=== PATIENT | female | born 1970 | race Caucasian/White ===

== ENCOUNTER → 2016-05-26 | Outpatient (CLI) | payer MEDICARE, MEDICAID ==
[~2016-05-26] MED LIST: 'zithromax250 MG PO; AMBIEN10 MG PO; AMOXICILLIN500 M2 PO; ANAPROX DS550 MG PO; ANTIVERT/2525 MG PO; ANTIVERT25 MG PO; ASMANEX TW110 MCG/AC INH; AUGMENTIN 875 M1 TA1 PO; AUGMENTIN 875 M1 TAB PO; AUGMENTIN 875875 MG PO; AVELOX400 MG PO; B12,B-12,B 12500 MC1 PO; BACLOFEN20 MG PO; BACTROBAN OINT22 GM PO; CALCIUM1 CAP PO; CEFZIL500 MG PO; CEPHALEXIN500 M1 PO; CIPRO250 MG PO; CIPRO500 MG PO; CIPRODEX 0.3%-7.5 ML OT; CIPROFLOXACIN500 MG PO; CLARITIN10 MG PO; CLINDAMYCIN HC300 MG PO; CLINDAMYCIN150 MG PO; COLACE100 MG PO; DARVOCET N 1001 TAB PO; DIFLUCAN100 MG PO; DIFLUCAN150 MG PO; DIFLUCAN200 MG PO; DURICEF500 MG PO; FLAGYL500 MG PO; FLOMAX0.4 MG PO; FLONASE0.05 MG/AC NS; FLUCONAZOLE100 MG PO; FLUMADINE100 MG PO; FLUONAZOLE200 M1 PO; GLUCOSAMINE500 MG PO; HYDROCODONE BIT1 T11 PO; KEFLEX500 MG PO; LAMICTAL100 MG PO; LEVAQUIN250 MG PO; LEVAQUIN750 M1 PO; LEVAQUIN750 MG PO; LEVOFLOXACIN500 MG PO; LITHIUM CARBON300 M2 PO; MACROBID100 M1 PO; MAGNESIUM500 MG PO; MEDROL DOSEPAK4 MG PO; MIRALAX POWDER17 G1 PO; MOTRIN800 MG PO; MUCINEX DM 30/61 TAB PO; Motrin,Rufen800 MG PO; NAPROSYN500 MG PO; NASONEX0.05 MG/AC NAS; NASONEX0.05 MG/AC NS; NORCO 5-325 TA1 EACH PO; OMNICEF300 MG PO; PEN-V500 MG PO; PEN-VK500 MG PO; PERCOCET 325 MG1 TA2 PO; PREDNICOT10 MG PO; PREDNICOT20 MG PO; PREDNISONE10 MG PO; PREDNISONE20 MG PO; PREVACID SOLUTA30 MG PO; PROBIOTIC FORMU1 CAP PO; PROTONIX40 MG PO; PYRIDIUM200 MG PO; QVAR0.08 MG/AC IH; REBIF22 MCG/0.5 SC; ROBITUSSIN AC 110 ML PO; ROBITUSSIN DM 105 ML PO; ROBITUSSIN5 ML PO; SINGULAIR10 MG PO; SYNTHROID,LEV125 MCG PO; SYNTHROID0.075 MG PO; SYNTHROID0.1 MG PO; TERAZOL0.4% VG; TESSALON PERLE100 M1 PO; TORADOL10 MG PO; ULTRAM50 MG PO; VIBRAMYCIN100 MG PO; VITAMIN D32000 I2 PO; VOLTAREN GEL1% TP; XANAX0.25 MG PO; XOPENEX HF0.045 MG/A IH; ZINC1 TAB PO; ZITHROMAX Z PA250 MG PO; ZITHROMAX250 MG PO; ZOFRAN4 MG PO
[2016-05-26 16:57] LABS: ALBUMIN 3.3 gm/dl (3.1-4.5); ALKALINE PHOSPHATASE 85 U/L (45-117); BILIRUBIN, DIRECT < 0.1 mg/dL (0.0-0.2); BILIRUBIN, TOTAL 0.2 mg/dl (0.2-1.0); SGOT/AST 24 IU/L (3-35); SGPT/ALT 22 U/L (12-78); TOTAL PROTEIN 6.9 gm/dL (6.4-8.2)
[2016-05-26 16:59] LABS: FREE T4 0.89 ng/dl (0.76-1.46)
[2016-05-26 17:46] LABS: VITAMIN D, 25-HYDROXY 25.9 ng/mL (30-100)
[2016-05-27 06:43] LABS: IRON 34 ug/dL (50-170); IRON SATURATION 9 %; UIBC 328 ug/dL (110-365)
== END | disposition home or self-care (01) ==
LOC: LAB 16:08
PROVIDERS: Internal Medicine
DX: R53.82 Chronic fatigue, unspecified (principal); E03.9 Hypothyroidism, unspecified; E34.9 Endocrine disorder, unspecified; E55.9 Vitamin D deficiency, unspecified; L65.9 Nonscarring hair loss, unspecified

== ENCOUNTER 2016-06-02 00:49 | Emergency (ER) | payer MEDICARE, MEDICAID ==
[~2016-06-02] VITALS: Ht 162.5 cm; Wt 81.6 kg
[2016-06-02 00:56] VITALS: BP 133/94
== END 2016-06-02 01:51 | disposition home or self-care (01) ==
LOC: ED 00:49
DX: M26.622 Arthralgia of left temporomandibular joint (principal); Z90.710 Acquired absence of both cervix and uterus; K21.9 Gastro-esophageal reflux disease without esophagitis; F41.9 Anxiety disorder, unspecified; Z79.899 Other long term (current) drug therapy; Z88.8 Allergy status to other drugs, medicaments and biological substances

== ENCOUNTER 2016-07-21 18:51 | Emergency (ER) | payer MEDICARE, MEDICAID ==
[~2016-07-21] VITALS: Ht 167.6 cm; Wt 78.0 kg
[2016-07-21 19:01] VITALS: BP 144/90
== END 2016-07-21 20:40 | disposition left against medical advice (07) ==
LOC: ED 18:51
DX: J06.9 Acute upper respiratory infection, unspecified (principal); F41.9 Anxiety disorder, unspecified; K21.9 Gastro-esophageal reflux disease without esophagitis; Z88.1 Allergy status to other antibiotic agents; Z88.8 Allergy status to other drugs, medicaments and biological substances; Z79.899 Other long term (current) drug therapy

== ENCOUNTER 2016-08-04 05:48 | Emergency (ER) | payer MEDICARE, MEDICAID ==
[~2016-08-04] VITALS: Ht 167.6 cm; Wt 78.0 kg
[2016-08-04 05:48] VITALS: BP 134/94
[~2016-08-04 05:48] MED LIST changes: +ESTRACE1 M1 PO; +SV FLAXSEED OI1 EACH PO; +SYNTHROID0.137 MG PO; +VITAMIN D5000 UNI1 PO
[2016-08-04 06:32] LABS: HEMATOCRIT 36.9 % (37.0-47.0); HEMOGLOBIN 11.9 g/dl (12.0-16.0); MEAN CELL VOLUME 87.6 fl (81.0-99.0); MEAN CORPUSCULAR HGB 28.3 pg (27.0-31.0); MEAN CORPUSCULAR HGB CONC 32.2 g/dl (33.0-37.0); MEAN PLATELET VOLUME 9.4 fl (9.6-12.3); PLATELET COUNT AUTOMATED 268 10*3/uL (130-400); RED BLOOD COUNT 4.21 10*6/uL (4.10-5.10); RED CELL DISTRI WIDTH 14.2 % (0-14.5); WHITE BLOOD COUNT 9.5 10*3/uL (4.8-10.8)
[2016-08-04 06:40] LABS: INTERNATIONAL NORM RATIO 0.9 (2.0-3.5); PROTHROMBIN TIME 9.5 SECONDS (9.0-12.4)
[2016-08-04 06:50] LABS: ALKALINE PHOSPHATASE 61 U/L (45-117); BILIRUBIN, TOTAL 0.3 mg/dl (0.2-1.0); BUN 24 mg/dl (7-24); CARBON DIOXIDE 26 mmol/L (21-32); CHLORIDE 108 mmol/L (98-107); EST GLOM FILT AFRICAN AMERICAN > 60 ml/min; GLUCOSE 99 mg/dL (65-99); POTASSIUM 3.9 mmol/L (3.5-5.1); SGOT/AST 25 IU/L (3-35); SGPT/ALT 22 U/L (12-78); SODIUM 140 mmol/L (136-145)
[2016-08-04 06:51] LABS: C-REACTIVE PROTEIN < 0.29 MG/DL (0-0.3); LYMPHOCYTE # 2.4 10*3/uL (1.3-4.4); MONOCYTE # 0.6 10*3/uL (0.1-1.0); MYELOCYTES 3 % (0-0); NEUTROPHIL # 6.3 10*3/uL (2.3-7.9); NEUTROPHILS 66 % (47-73); TOTAL CELLS COUNTED 100 #CELLS; TROPONIN I < 0.015 ng/ml (<0.045)
[2016-08-04 06:52] LABS: PLATELET SUFFICIENCY NORMAL (NORMAL)
[2016-08-04 07:07] LABS: BILIRUBIN NEGATIVE (NEGATIVE); BLOOD NEGATIVE (NEGATIVE); CLARITY SL CLOUDY (CLEAR); COLOR YELLOW (YELLOW); GLUCOSE NEGATIVE (NEGATIVE); KETONE NEGATIVE (NEGATIVE); LEUKO ESTERASE NEGATIVE (NEGATIVE); NITRITE NEGATIVE (NEGATIVE); PROTEIN NEGATIVE (NEGATIVE); UROBILINOGEN 0.2 E.U./dl (0.2-1.0)
[2016-08-04 07:15] LABS: BACTERIA 1+; URINE REFLEX COMMENT YES (NO)
== END 2016-08-04 08:46 | disposition home or self-care (01) ==
LOC: ED 05:48
PROVIDERS: Emergency Medicine Emergency Medical Services
DX: F31.9 Bipolar disorder, unspecified (principal); E03.9 Hypothyroidism, unspecified; F41.9 Anxiety disorder, unspecified; K21.9 Gastro-esophageal reflux disease without esophagitis; Z88.1 Allergy status to other antibiotic agents; Z88.8 Allergy status to other drugs, medicaments and biological substances; Z79.899 Other long term (current) drug therapy

== ENCOUNTER → 2016-08-05 | Outpatient (CLI) | payer MEDICARE, MEDICAID ==
[2016-08-05 23:40] LABS: BILIRUBIN 1+ (NEGATIVE); BLOOD NEGATIVE (NEGATIVE); CLARITY CLEAR (CLEAR); COLOR YELLOW (YELLOW); GLUCOSE NEGATIVE (NEGATIVE); KETONE 1+ (NEGATIVE); LEUKO ESTERASE NEGATIVE (NEGATIVE); NITRITE NEGATIVE (NEGATIVE); PH 5.5 (5.0-9.0); PROTEIN TRACE (NEGATIVE)
[2016-08-05 23:53] LABS: BACTERIA 1+; WBC 0-2 wbc/hpf (0-5)
== END | disposition home or self-care (01) ==
LOC: LAB 22:37
PROVIDERS: Psychiatry & Neurology Neurology
DX: G35 Multiple sclerosis (principal); Z79.899 Other long term (current) drug therapy

== ENCOUNTER 2016-08-25 14:39 | Emergency (ER) | payer MEDICARE, MEDICAID ==
[~2016-08-25] VITALS: Wt 79.8 kg
[2016-08-25 14:43] VITALS: BP 148/94
[2016-08-25 15:29] LABS: BILIRUBIN NEGATIVE (NEGATIVE); BLOOD NEGATIVE (NEGATIVE); CLARITY SL CLOUDY (CLEAR); COLOR YELLOW (YELLOW); GLUCOSE NEGATIVE (NEGATIVE); KETONE NEGATIVE (NEGATIVE); LEUKO ESTERASE NEGATIVE (NEGATIVE); NITRITE NEGATIVE (NEGATIVE); PROTEIN NEGATIVE (NEGATIVE); UROBILINOGEN 0.2 E.U./dl (0.2-1.0)
[2016-08-25 15:35] LABS: BACTERIA TRACE; MUCOUS 1+
[2016-08-25 15:36] LABS: RBC 0-2 rbc/hpf (0-2); URINE REFLEX COMMENT NO (NO); WBC 0-2 wbc/hpf (0-5)
[2016-08-25] MEDS ORDERED: VIBRAMYCIN100 MG PO (16:38)
== END 2016-08-25 16:45 | disposition home or self-care (01) ==
LOC: ED 14:39
PROVIDERS: Physician Assistant
DX: J32.9 Chronic sinusitis, unspecified (principal); Z79.899 Other long term (current) drug therapy; Z88.1 Allergy status to other antibiotic agents; Z88.8 Allergy status to other drugs, medicaments and biological substances

== ENCOUNTER 2016-10-18 19:03 | Emergency (ER) | payer MEDICARE, MEDICAID ==
[~2016-10-18] VITALS: Wt 78.0 kg
[2016-10-18 19:23] VITALS: BP 140/80
[2016-10-18] MEDS ORDERED: NAPROSYN500 MG PO (19:51)
[2016-10-19] MEDS ORDERED: AMOXICILLIN500 M2 PO (23:06)
[2016-10-19] MEDS ORDERED: PYRIDIUM200 M1 PO (23:06)
[2016-10-19] MEDS ORDERED: FLUCONAZOLE100 MG PO (23:23)
== END 2016-10-18 19:51 | disposition home or self-care (01) ==
LOC: ED 19:03
DX: M26.621 Arthralgia of right temporomandibular joint (principal); Z79.899 Other long term (current) drug therapy; Z88.1 Allergy status to other antibiotic agents; Z88.8 Allergy status to other drugs, medicaments and biological substances

== ENCOUNTER 2016-10-19 20:34 | Emergency (ER) | payer MEDICARE, MEDICAID ==
[~2016-10-19] VITALS: Ht 167.6 cm; Wt 78.0 kg
[2016-10-19 21:04] VITALS: BP 152/88
[2016-10-19 21:29] LABS: BILIRUBIN NEGATIVE (NEGATIVE); BLOOD NEGATIVE (NEGATIVE); CLARITY CLOUDY (CLEAR); COLOR YELLOW (YELLOW); GLUCOSE NEGATIVE (NEGATIVE); KETONE NEGATIVE (NEGATIVE); LEUKO ESTERASE NEGATIVE (NEGATIVE); NITRITE NEGATIVE (NEGATIVE); PROTEIN NEGATIVE (NEGATIVE); SPECIFIC GRAVITY 1.025 (1.005-1.030); UROBILINOGEN 0.2 E.U./dl (0.2-1.0)
[2016-10-19 21:52] LABS: ALBUMIN 3.5 gm/dl (3.1-4.5); ALKALINE PHOSPHATASE 85 U/L (45-117); BILIRUBIN, TOTAL 0.2 mg/dl (0.2-1.0); BUN 14 mg/dl (7-24); C-REACTIVE PROTEIN 0.48 MG/DL (0-0.3); CARBON DIOXIDE 22 mmol/L (21-32); CHLORIDE 108 mmol/L (98-107); EST GLOM FILT AFRICAN AMERICAN > 60 ml/min; GLUCOSE 87 mg/dL (65-99); SGOT/AST 42 IU/L (3-35); SGPT/ALT 21 U/L (12-78); SODIUM 139 mmol/L (136-145); TOTAL PROTEIN 6.6 gm/dL (6.4-8.2)
[2016-10-19 22:01] LABS: BASO % 0.2 % (0.0-1.0); EOS # 0.1 10*3/uL (0.0-0.4); EOS % 1.2 % (1.0-4.0); HEMATOCRIT 35.5 % (37.0-47.0); HEMOGLOBIN 11.6 g/dl (12.0-16.0); LYMPH # 1.3 10*3/uL (1.3-4.4); MEAN CELL VOLUME 87.9 fl (81.0-99.0); MEAN CORPUSCULAR HGB 28.7 pg (27.0-31.0); MEAN CORPUSCULAR HGB CONC 32.7 g/dl (33.0-37.0); MEAN PLATELET VOLUME 10.4 fl (9.6-12.3); MONO # 0.5 10*3/uL (0.1-1.0); MONO % 9.8 % (3.0-9.0); NEUT # 3.3 10*3/uL (2.3-7.9); NEUT % 63.6 % (47.0-73.0); PLATELET COUNT AUTOMATED 283 10*3/uL (130-400); RED BLOOD COUNT 4.04 10*6/uL (4.10-5.10); WHITE BLOOD COUNT 5.2 10*3/uL (4.8-10.8)
[2016-10-19 22:11] LABS: BACTERIA 4+; MUCOUS TRACE; RBC 0-2 rbc/hpf (0-2); URIC ACID CRYSTALS TRACE; URINE REFLEX COMMENT YES (NO); WBC 0-2 wbc/hpf (0-5)
[2016-10-19] MEDS ORDERED: PYRIDIUM200 M1 PO (23:06)
[2016-10-19] MEDS ORDERED: AMOXICILLIN500 M2 PO (23:06)
[2016-10-19] MEDS ORDERED: FLUCONAZOLE100 MG PO (23:23)
== END 2016-10-19 23:20 | disposition home or self-care (01) ==
LOC: ED 20:34
PROVIDERS: Emergency Medicine Emergency Medical Services
DX: N39.0 Urinary tract infection, site not specified (principal); R30.0 Dysuria; K21.9 Gastro-esophageal reflux disease without esophagitis; E03.9 Hypothyroidism, unspecified; Z90.710 Acquired absence of both cervix and uterus; Z98.890 Other specified postprocedural states; Z79.899 Other long term (current) drug therapy; Z88.8 Allergy status to other drugs, medicaments and biological substances; Z88.6 Allergy status to analgesic agent

== ENCOUNTER 2016-11-23 09:59 | Emergency (ER) | payer MEDICARE, MEDICAID ==
[~2016-11-23 09:59] MED LIST changes: +PYRIDIUM200 M1 PO
[2016-11-23 10:14] VITALS: BP 148/90
[2016-11-23 10:44] LABS: BASO % 0.1 % (0.0-1.0); EOS % 0.2 % (1.0-4.0); HEMATOCRIT 38.1 % (37.0-47.0); HEMOGLOBIN 12.1 g/dl (12.0-16.0); LYMPH # 0.8 10*3/uL (1.3-4.4); LYMPH % 9.5 % (27.0-41.0); MEAN CELL VOLUME 88.8 fl (81.0-99.0); MEAN CORPUSCULAR HGB 28.2 pg (27.0-31.0); MEAN CORPUSCULAR HGB CONC 31.8 g/dl (33.0-37.0); MEAN PLATELET VOLUME 9.6 fl (9.6-12.3); MONO # 0.3 10*3/uL (0.1-1.0); MONO % 3.9 % (3.0-9.0); NEUT # 7.4 10*3/uL (2.3-7.9); NEUT % 85.7 % (47.0-73.0); PLATELET COUNT AUTOMATED 376 10*3/uL (130-400); RED BLOOD COUNT 4.29 10*6/uL (4.10-5.10); RED CELL DISTRI WIDTH 13.2 % (0-14.5); WHITE BLOOD COUNT 8.7 10*3/uL (4.8-10.8)
[2016-11-23 10:49] LABS: BILIRUBIN NEGATIVE (NEGATIVE); BLOOD NEGATIVE (NEGATIVE); CLARITY CLEAR (CLEAR); COLOR YELLOW (YELLOW); GLUCOSE NEGATIVE (NEGATIVE); KETONE NEGATIVE (NEGATIVE); LEUKO ESTERASE NEGATIVE (NEGATIVE); NITRITE NEGATIVE (NEGATIVE); SPECIFIC GRAVITY <= 1.005 (1.005-1.030); UROBILINOGEN 0.2 E.U./dl (0.2-1.0)
[2016-11-23 10:58] LABS: ALKALINE PHOSPHATASE 81 U/L (45-117); BUN 27 mg/dl (7-24); CHLORIDE 108 mmol/L (98-107); POTASSIUM 4.6 mmol/L (3.5-5.1); SGOT/AST 47 IU/L (3-35); SGPT/ALT 26 U/L (12-78); SODIUM 140 mmol/L (136-145); TOTAL PROTEIN 7.4 gm/dL (6.4-8.2)
[2016-11-23] MEDS ORDERED: MEDROL DOSEPAK4 MG PO (11:42)
== END 2016-11-23 12:47 | disposition home or self-care (01) ==
LOC: ED 09:59
PROVIDERS: Emergency Medicine
DX: B27.90 Infectious mononucleosis, unspecified without complication (principal); K21.9 Gastro-esophageal reflux disease without esophagitis; E03.9 Hypothyroidism, unspecified; Z90.710 Acquired absence of both cervix and uterus; Z79.899 Other long term (current) drug therapy; Z88.8 Allergy status to other drugs, medicaments and biological substances; Z88.6 Allergy status to analgesic agent

== ENCOUNTER 2016-12-16 13:48 | Emergency (ER) | payer MEDICARE, MEDICAID ==
[~2016-12-16] VITALS: Wt 78.0 kg
[2016-12-16 13:51] VITALS: BP 150/95
== END 2016-12-16 15:20 | disposition home or self-care (01) ==
LOC: ED 13:48
DX: M26.609 Unspecified temporomandibular joint disorder, unspecified side (principal); R51 Headache; Z88.1 Allergy status to other antibiotic agents; Z88.8 Allergy status to other drugs, medicaments and biological substances; Z79.899 Other long term (current) drug therapy

== ENCOUNTER 2017-01-14 22:39 | Emergency (ER) | payer MEDICARE, MEDICAID ==
[~2017-01-14] VITALS: Ht 167.6 cm; Wt 78.9 kg
[2017-01-14 22:50] VITALS: BP 163/90
[2017-01-14] MEDS ORDERED: MEDROL DOSEPAK4 MG PO (23:14)
[2017-01-14] MEDS ORDERED: DIFLUCAN150 MG PO (23:40)
== END 2017-01-15 00:49 | disposition home or self-care (01) ==
LOC: ED 22:39
DX: M26.623 Arthralgia of bilateral temporomandibular joint (principal); J02.9 Acute pharyngitis, unspecified; E03.9 Hypothyroidism, unspecified; K21.9 Gastro-esophageal reflux disease without esophagitis; Z88.1 Allergy status to other antibiotic agents; Z88.6 Allergy status to analgesic agent; Z88.8 Allergy status to other drugs, medicaments and biological substances

== ENCOUNTER → 2017-03-31 | Outpatient (CLI) | payer MEDICARE, MEDICAID ==
[2017-03-31 17:29] LABS: HEMATOCRIT 39.5 % (37.0-47.0); HEMOGLOBIN 12.9 g/dl (12.0-16.0); MEAN CELL VOLUME 85.1 fl (81.0-99.0); MEAN CORPUSCULAR HGB 27.8 pg (27.0-31.0); MEAN CORPUSCULAR HGB CONC 32.7 g/dl (33.0-37.0); MEAN PLATELET VOLUME 9.7 fl (9.6-12.3); RED BLOOD COUNT 4.64 10*6/uL (4.10-5.10); RED CELL DISTRI WIDTH 13.4 % (0-14.5); WHITE BLOOD COUNT 6.2 10*3/uL (4.8-10.8)
[2017-03-31 17:56] LABS: THYROXINE (T4) TOTAL 12.3 ug/dl (4.8-13.9)
== END | disposition home or self-care (01) ==
LOC: LAB 16:58
PROVIDERS: Internal Medicine
DX: E03.9 Hypothyroidism, unspecified (principal); E78.00 Pure hypercholesterolemia, unspecified; E55.9 Vitamin D deficiency, unspecified

== ENCOUNTER 2017-05-29 23:00 | Emergency (ER) | payer MEDICARE, MEDICAID ==
[~2017-05-29] VITALS: Ht 167.6 cm; Wt 68.0 kg
[2017-05-29 23:04] VITALS: BP 137/56
== END 2017-05-29 23:48 | disposition home or self-care (01) ==
LOC: ED 23:00
DX: S05.02XA Injury of conjunctiva and corneal abrasion without foreign body, left eye, initial encounter (principal); Z88.6 Allergy status to analgesic agent; Z91.041 Radiographic dye allergy status; Z88.8 Allergy status to other drugs, medicaments and biological substances; Z79.899 Other long term (current) drug therapy; Z90.710 Acquired absence of both cervix and uterus; W22.8XXA Striking against or struck by other objects, initial encounter; Y93.89 Activity, other specified; Y92.89 Other specified places as the place of occurrence of the external cause; Y99.8 Other external cause status

== ENCOUNTER 2017-09-14 07:33 | Emergency (ER) | payer MEDICARE, MEDICAID ==
[~2017-09-14] VITALS: Ht 167.6 cm; Wt 77.1 kg
[2017-09-14 07:34] VITALS: BP 134/84
[2017-09-14 07:52] LABS: BILIRUBIN NEGATIVE (NEGATIVE); BLOOD NEGATIVE (NEGATIVE); CLARITY CLOUDY (CLEAR); COLOR YELLOW (YELLOW); GLUCOSE NEGATIVE (NEGATIVE); KETONE NEGATIVE (NEGATIVE); LEUKO ESTERASE NEGATIVE (NEGATIVE); NITRITE NEGATIVE (NEGATIVE); UROBILINOGEN 0.2 E.U./dl (0.2-1.0)
[2017-09-14 08:00] LABS: BACTERIA TRACE; EPITHELIAL CELLS 21-30
[2017-09-14 08:39] LABS: BASO % 0.3 % (0.0-1.0); EOS # 0.1 10*3/uL (0.0-0.4); EOS % 1.7 % (1.0-4.0); HEMATOCRIT 37.2 % (37.0-47.0); HEMOGLOBIN 11.8 g/dl (12.0-16.0); LYMPH # 2.2 10*3/uL (1.3-4.4); LYMPH % 32.4 % (27.0-41.0); MEAN CORPUSCULAR HGB 28.2 pg (27.0-31.0); MEAN CORPUSCULAR HGB CONC 31.7 g/dl (33.0-37.0); MEAN PLATELET VOLUME 9.7 fl (9.6-12.3); MONO # 0.7 10*3/uL (0.1-1.0); MONO % 9.5 % (3.0-9.0); NEUT # 3.9 10*3/uL (2.3-7.9); NEUT % 55.7 % (47.0-73.0); PLATELET COUNT AUTOMATED 333 10*3/uL (130-400); RED BLOOD COUNT 4.18 10*6/uL (4.10-5.10); RED CELL DISTRI WIDTH 13.3 % (0-14.5); WHITE BLOOD COUNT 6.9 10*3/uL (4.8-10.8)
[2017-09-14 08:57] LABS: ALBUMIN 3.7 gm/dl (3.1-4.5); ALKALINE PHOSPHATASE 83 U/L (45-117); BUN 23 mg/dl (7-24); CHLORIDE 110 mmol/L (98-107); CREATININE 0.89 mg/dL (0.55-1.02); LIPASE 280 U/L (73-393); POTASSIUM 4.2 mmol/L (3.5-5.1); SGOT/AST 35 IU/L (3-35); SGPT/ALT 20 U/L (12-78); SODIUM 141 mmol/L (136-145); TOTAL PROTEIN 7.2 gm/dL (6.4-8.2)
[2017-09-14] MEDS ORDERED: ZOFRAN ODT4 MG SL (10:08)
== END 2017-09-14 10:20 | disposition home or self-care (01) ==
LOC: ED 07:33
PROVIDERS: Emergency Medicine
DX: E86.0 Dehydration (principal); R11.0 Nausea; R33.9 Retention of urine, unspecified; R10.30 Lower abdominal pain, unspecified; K21.9 Gastro-esophageal reflux disease without esophagitis; E03.9 Hypothyroidism, unspecified; Z88.8 Allergy status to other drugs, medicaments and biological substances; Z79.899 Other long term (current) drug therapy

== ENCOUNTER 2017-10-15 16:41 | Emergency (ER) | payer MEDICARE, MEDICAID ==
[~2017-10-15] VITALS: Ht 172.7 cm; Wt 79.4 kg
[~2017-10-15 16:41] MED LIST changes: +ZOFRAN ODT4 MG SL
[2017-10-15 16:54] VITALS: BP 131/85
== END 2017-10-15 18:19 | disposition home or self-care (01) ==
LOC: ED 16:41
DX: J01.80 Other acute sinusitis (principal); Z88.8 Allergy status to other drugs, medicaments and biological substances; Z88.1 Allergy status to other antibiotic agents; Z79.899 Other long term (current) drug therapy

== ENCOUNTER 2017-11-29 15:36 | Emergency (ER) | payer MEDICARE, MEDICAID ==
[~2017-11-29] VITALS: Ht 172.7 cm; Wt 81.6 kg
[2017-11-29 15:37] VITALS: BP 152/91
[2017-11-29 16:21] LABS: BILIRUBIN NEGATIVE (NEGATIVE); BLOOD NEGATIVE (NEGATIVE); CLARITY SL CLOUDY (CLEAR); COLOR YELLOW (YELLOW); GLUCOSE NEGATIVE (NEGATIVE); KETONE NEGATIVE (NEGATIVE); LEUKO ESTERASE NEGATIVE (NEGATIVE); NITRITE NEGATIVE (NEGATIVE); SPECIFIC GRAVITY 1.025 (1.005-1.030); UROBILINOGEN 0.2 E.U./dl (0.2-1.0)
[2017-11-29 16:29] LABS: EPITHELIAL CELLS 18-20; MUCOUS TRACE; RBC 0-2 rbc/hpf (0-2)
== END 2017-11-29 16:36 | disposition home or self-care (01) ==
LOC: ED 15:36
PROVIDERS: Nurse Practitioner Family
DX: Z00.00 Encounter for general adult medical examination without abnormal findings (principal); Z79.899 Other long term (current) drug therapy; Z88.6 Allergy status to analgesic agent; Z88.8 Allergy status to other drugs, medicaments and biological substances

== ENCOUNTER → 2017-12-16 | Outpatient (CLI) | payer MEDICARE, MEDICAID | LOC: LAB 17:11 | DX: N39.0 Urinary tract infection, site not specified (principal) ==

== ENCOUNTER → 2017-12-24 | Outpatient (CLI) | payer MEDICARE, MEDICAID | END | disposition home or self-care (01) | LOC: LAB 16:43 | DX: N39.0 Urinary tract infection, site not specified (principal) ==

== ENCOUNTER → 2018-01-19 | Outpatient (CLI) | payer MEDICARE, MEDICAID | END | disposition home or self-care (01) | LOC: LAB 13:32 | DX: N39.0 Urinary tract infection, site not specified (principal); R30.0 Dysuria ==

== ENCOUNTER → 2018-02-03 | Outpatient (CLI) | payer MEDICARE, MEDICAID | END | disposition home or self-care (01) | LOC: LAB 19:11 | DX: N39.0 Urinary tract infection, site not specified (principal) ==

== ENCOUNTER 2018-02-08 22:30 | Emergency (ER) | payer MEDICARE, MEDICAID ==
[2018-02-08 22:36] VITALS: BP 126/78
[2018-02-09] MEDS ORDERED: CEPHALEXIN500 M1 PO (16:32)
== END 2018-02-09 00:54 | disposition home or self-care (01) ==
LOC: ED 22:30
DX: L03.116 Cellulitis of left lower limb (principal); Z88.8 Allergy status to other drugs, medicaments and biological substances; Z79.899 Other long term (current) drug therapy

== ENCOUNTER → 2018-03-20 | Outpatient (CLI) | payer MEDICARE, MEDICAID ==
[~2018-03-20] MED LIST changes: +CEFUROXIME AXE500 MG PO; +FLONASE ALLERG9.9 ML NAS; +ZYRTEC10 MG PO
== END | disposition home or self-care (01) ==
LOC: LAB 18:37
DX: R30.0 Dysuria (principal); N39.0 Urinary tract infection, site not specified

== ENCOUNTER → 2018-03-27 | Outpatient (CLI) | payer MEDICARE, MEDICAID ==
[~2018-03-27] MED LIST changes: +KETOROLAC10 MG PO; +VISTARIL25 MG PO
== END | disposition home or self-care (01) ==
LOC: LAB 17:11
DX: N39.0 Urinary tract infection, site not specified (principal)

== ENCOUNTER → 2018-04-13 | Outpatient (CLI) | payer MEDICARE, MEDICAID ==
[~2018-04-13] MED LIST changes: -KETOROLAC10 MG PO; -VISTARIL25 MG PO
== END | disposition home or self-care (01) ==
LOC: LAB 19:54
DX: N39.0 Urinary tract infection, site not specified (principal); R30.0 Dysuria

== ENCOUNTER 2018-04-30 19:17 | Emergency (ER) | payer MEDICARE, MEDICAID ==
[~2018-04-30] VITALS: Ht 167.6 cm; Wt 76.2 kg
[2018-04-30 19:17] VITALS: BP 148/88
[~2018-04-30 19:17] MED LIST changes: -CEFUROXIME AXE500 MG PO; -FLONASE ALLERG9.9 ML NAS; -ZYRTEC10 MG PO
[2018-04-30] MEDS ORDERED: ZYRTEC10 MG PO (20:22)
[2018-04-30] MEDS ORDERED: CEFUROXIME AXE500 MG PO (20:22)
[2018-04-30] MEDS ORDERED: FLONASE ALLERG9.9 ML NAS (20:22)
[2018-08-06] MEDS ORDERED: KETOROLAC10 MG PO (22:03)
== END 2018-04-30 20:34 | disposition home or self-care (01) ==
LOC: ED 19:17
DX: J01.90 Acute sinusitis, unspecified (principal); M25.571 Pain in right ankle and joints of right foot; Z79.899 Other long term (current) drug therapy; Z88.8 Allergy status to other drugs, medicaments and biological substances

== ENCOUNTER 2018-06-02 20:21 | Emergency (ER) | payer MEDICARE, MEDICAID ==
[~2018-06-02] VITALS: Ht 167.6 cm; Wt 76.7 kg
[~2018-06-02 20:21] MED LIST changes: +CEFUROXIME AXE500 MG PO; +FLONASE ALLERG9.9 ML NAS; +ZYRTEC10 MG PO
[2018-06-02 20:24] VITALS: BP 130/80
[2018-08-06] MEDS ORDERED: KETOROLAC10 MG PO (22:03)
== END 2018-06-02 21:30 | disposition home or self-care (01) ==
LOC: ED 20:21
DX: R23.8 Other skin changes (principal); M79.89 Other specified soft tissue disorders; G89.29 Other chronic pain; K21.9 Gastro-esophageal reflux disease without esophagitis; E03.9 Hypothyroidism, unspecified; Z90.710 Acquired absence of both cervix and uterus; Z91.048 Other nonmedicinal substance allergy status; Z91.041 Radiographic dye allergy status; Z88.8 Allergy status to other drugs, medicaments and biological substances; Z79.899 Other long term (current) drug therapy

== ENCOUNTER → 2018-06-18 | Outpatient (CLI) | payer MEDICARE, MEDICAID ==
[~2018-06-18] MED LIST changes: +KETOROLAC10 MG PO; +VISTARIL25 MG PO
== END | disposition home or self-care (01) ==
LOC: LAB 15:21
DX: N39.0 Urinary tract infection, site not specified (principal); R30.0 Dysuria

== ENCOUNTER → 2018-07-02 | Outpatient (CLI) | payer MEDICARE, MEDICAID | END | disposition home or self-care (01) | LOC: LAB 17:12 | DX: N39.0 Urinary tract infection, site not specified (principal); R30.0 Dysuria ==

== ENCOUNTER 2018-07-17 19:44 | Emergency (ER) | payer MEDICARE, MEDICAID ==
[~2018-07-17] VITALS: Wt 76.2 kg
[2018-07-17 19:44] VITALS: BP 133/83
[~2018-07-17 19:44] MED LIST changes: -KETOROLAC10 MG PO; -VISTARIL25 MG PO
[2018-07-17 21:05] LABS: BILIRUBIN NEGATIVE (NEGATIVE); BLOOD NEGATIVE (NEGATIVE); CLARITY CLOUDY (CLEAR); COLOR YELLOW (YELLOW); GLUCOSE NEGATIVE (NEGATIVE); KETONE NEGATIVE (NEGATIVE); LEUKO ESTERASE NEGATIVE (NEGATIVE); NITRITE NEGATIVE (NEGATIVE); SPECIFIC GRAVITY 1.015 (1.005-1.030); UROBILINOGEN 0.2 E.U./dl (0.2-1.0)
[2018-07-17 21:11] LABS: BACTERIA 2+; EPITHELIAL CELLS 16-20; RBC 0-2 rbc/hpf (0-2); WBC 0-2 wbc/hpf (0-5)
[2018-07-17 22:28] LABS: BASO % 0.4 % (0.0-1.0); EOS # 0.1 10*3/uL (0.0-0.4); EOS % 1.3 % (1.0-4.0); HEMATOCRIT 36.1 % (37.0-47.0); HEMOGLOBIN 11.6 g/dl (12.0-16.0); LYMPH # 2.1 10*3/uL (1.3-4.4); LYMPH % 39.1 % (27.0-41.0); MEAN CELL VOLUME 86.6 fl (81.0-99.0); MEAN CORPUSCULAR HGB 27.8 pg (27.0-31.0); MEAN CORPUSCULAR HGB CONC 32.1 g/dl (33.0-37.0); MEAN PLATELET VOLUME 9.9 fl (9.6-12.3); MONO # 0.3 10*3/uL (0.1-1.0); MONO % 4.9 % (3.0-9.0); NEUT % 53.9 % (47.0-73.0); PLATELET COUNT AUTOMATED 208 10*3/uL (130-400); RED BLOOD COUNT 4.17 10*6/uL (4.10-5.10); RED CELL DISTRI WIDTH 13.1 % (0-14.5); WHITE BLOOD COUNT 5.5 10*3/uL (4.8-10.8)
[2018-07-17 22:49] LABS: ALBUMIN 3.7 gm/dl (3.1-4.5); ALKALINE PHOSPHATASE 97 U/L (45-117); BUN 28 mg/dl (7-24); CHLORIDE 107 mmol/L (98-107); CREATININE 0.97 mg/dL (0.55-1.02); POTASSIUM 3.8 mmol/L (3.5-5.1); SGOT/AST 23 IU/L (3-35); SGPT/ALT 15 U/L (12-78); SODIUM 139 mmol/L (136-145); TOTAL PROTEIN 7.3 gm/dL (6.4-8.2)
[2018-07-18] MEDS ORDERED: LEVOFLOXACIN500 MG PO (00:23)
[2018-08-06] MEDS ORDERED: KETOROLAC10 MG PO (22:03)
== END 2018-07-18 00:25 | disposition home or self-care (01) ==
LOC: ED 19:44
PROVIDERS: Emergency Medicine
DX: R82.71 Bacteriuria (principal); J06.9 Acute upper respiratory infection, unspecified; Z91.018 Allergy to other foods; Z91.041 Radiographic dye allergy status; Z88.8 Allergy status to other drugs, medicaments and biological substances; Z79.899 Other long term (current) drug therapy; Z90.710 Acquired absence of both cervix and uterus

== ENCOUNTER → 2018-07-22 | Outpatient (CLI) | payer MEDICARE, MEDICAID ==
[~2018-07-22] MED LIST changes: +KETOROLAC10 MG PO; +VISTARIL25 MG PO
== END | disposition home or self-care (01) ==
LOC: LAB 16:52
DX: N39.0 Urinary tract infection, site not specified (principal); R30.0 Dysuria

== ENCOUNTER 2018-08-15 21:58 | Emergency (ER) | payer MEDICARE, MEDICAID ==
[~2018-08-15 21:58] MED LIST changes: -VISTARIL25 MG PO
[2018-08-15 21:59] VITALS: BP 157/93
[2018-08-15] MEDS ORDERED: VISTARIL25 MG PO (22:27)
== END 2018-08-15 22:37 | disposition home or self-care (01) ==
LOC: ED 21:58
DX: S00.86XA Insect bite (nonvenomous) of other part of head, initial encounter (principal); S80.862A Insect bite (nonvenomous), left lower leg, initial encounter; S80.861A Insect bite (nonvenomous), right lower leg, initial encounter; S40.862A Insect bite (nonvenomous) of left upper arm, initial encounter; S40.861A Insect bite (nonvenomous) of right upper arm, initial encounter; Z91.018 Allergy to other foods; Z91.041 Radiographic dye allergy status; Z88.5 Allergy status to narcotic agent; Z88.8 Allergy status to other drugs, medicaments and biological substances; Z79.2 Long term (current) use of antibiotics; Z79.899 Other long term (current) drug therapy; Z90.710 Acquired absence of both cervix and uterus; W57.XXXA Bitten or stung by nonvenomous insect and other nonvenomous arthropods, initial encounter; Y93.89 Activity, other specified; Y92.89 Other specified places as the place of occurrence of the external cause; Y99.8 Other external cause status

== ENCOUNTER → 2018-08-23 | Outpatient (CLI) | payer MEDICARE, MEDICAID ==
[~2018-08-23] MED LIST changes: +VISTARIL25 MG PO
== END | disposition home or self-care (01) ==
LOC: LAB 23:21
DX: N39.0 Urinary tract infection, site not specified (principal); R30.0 Dysuria

== ENCOUNTER → 2018-10-18 | Outpatient (CLI) | payer MEDICARE, MEDICAID | END | disposition home or self-care (01) | LOC: LAB 16:47 | DX: N39.0 Urinary tract infection, site not specified (principal); R30.0 Dysuria ==

== ENCOUNTER → 2018-11-09 | Outpatient (CLI) | payer MEDICARE, MEDICAID | END | disposition home or self-care (01) | LOC: LAB 15:22 | DX: N39.0 Urinary tract infection, site not specified (principal); G35 Multiple sclerosis ==

== ENCOUNTER → 2018-11-16 | Outpatient (CLI) | payer MEDICARE, MEDICAID | END | disposition home or self-care (01) | LOC: LAB 19:29 | DX: N39.0 Urinary tract infection, site not specified (principal) ==

== ENCOUNTER → 2018-12-03 | Outpatient (CLI) | payer MEDICARE, MEDICAID | END | disposition home or self-care (01) | LOC: LAB 15:48 | DX: N39.0 Urinary tract infection, site not specified (principal) ==

== ENCOUNTER → 2018-12-24 | Outpatient (CLI) | payer MEDICARE, MEDICAID | END | disposition home or self-care (01) | LOC: LAB 20:07 | DX: N39.0 Urinary tract infection, site not specified (principal) ==

== ENCOUNTER → 2019-01-26 | Outpatient (CLI) | payer MEDICARE, MEDICAID | END | disposition home or self-care (01) | LOC: LAB 18:06 | DX: N39.0 Urinary tract infection, site not specified (principal) ==

== ENCOUNTER → 2019-04-11 | Outpatient (CLI) | payer MEDICARE, MEDICAID | END | disposition home or self-care (01) | LOC: LAB 17:23 | DX: N39.0 Urinary tract infection, site not specified (principal) ==

== ENCOUNTER → 2019-05-01 | Outpatient (CLI) | payer MEDICARE, MEDICAID | END | disposition home or self-care (01) | LOC: LAB 18:46 | DX: N39.0 Urinary tract infection, site not specified (principal) ==

== ENCOUNTER → 2019-05-11 | Outpatient (CLI) | payer MEDICARE, MEDICAID | END | disposition home or self-care (01) | LOC: LAB 21:28 | DX: N39.0 Urinary tract infection, site not specified (principal) ==

== ENCOUNTER → 2020-02-05 | Outpatient (CLI) | payer MEDICARE, MEDICAID | END | disposition home or self-care (01) | LOC: COVID19 16:05 | PROVIDERS: ATTEND Student in an Organized Health Care Education/Training Program | DX: U07.1 COVID-19 (principal) ==

== ENCOUNTER 2020-04-13 15:40 | Emergency (ER) | payer MEDICARE, MEDICAID ==
[~2020-04-13] VITALS: Ht 167.6 cm; Wt 65.8 kg
[2020-04-13 16:08] VITALS: BP 115/60
== END 2020-04-13 17:01 | disposition home or self-care (01) ==
LOC: ED 15:40
DX: M26.609 Unspecified temporomandibular joint disorder, unspecified side (principal); G89.29 Other chronic pain; Z88.8 Allergy status to other drugs, medicaments and biological substances; Z91.041 Radiographic dye allergy status; Z79.2 Long term (current) use of antibiotics; Z79.899 Other long term (current) drug therapy; Z90.711 Acquired absence of uterus with remaining cervical stump

== ENCOUNTER → 2020-04-19 | Outpatient (CLI) | payer MEDICARE, MEDICAID | END | disposition home or self-care (01) | LOC: LAB 01:41 | PROVIDERS: ATTEND Nurse Practitioner Family | DX: N39.0 Urinary tract infection, site not specified (principal); R30.0 Dysuria; D89.9 Disorder involving the immune mechanism, unspecified ==

== ENCOUNTER → 2020-05-24 | Outpatient (CLI) | payer MEDICARE, MEDICAID | END | disposition home or self-care (01) | LOC: LAB 23:19 | PROVIDERS: ATTEND Nurse Practitioner Family | DX: N39.0 Urinary tract infection, site not specified (principal); R30.0 Dysuria; D89.9 Disorder involving the immune mechanism, unspecified ==

== ENCOUNTER → 2020-08-07 | Outpatient (CLI) | payer MEDICARE, MEDICAID | END | disposition home or self-care (01) | LOC: LAB 02:32 | PROVIDERS: ATTEND Nurse Practitioner Family | DX: N39.0 Urinary tract infection, site not specified (principal); R30.0 Dysuria; D89.9 Disorder involving the immune mechanism, unspecified ==

== ENCOUNTER 2020-08-11 00:39 | Emergency (ER) | payer MEDICARE, MEDICAID ==
[2020-08-11 01:05] VITALS: BP 133/74
[2020-08-11 01:38] LABS: HEMATOCRIT 40.2 % (37.0-47.0); MEAN CELL VOLUME 90.3 fl (81.0-99.0); MEAN CORPUSCULAR HGB 28.3 pg (27.0-31.0); MEAN CORPUSCULAR HGB CONC 31.3 g/dl (33.0-37.0); MEAN PLATELET VOLUME 10.1 fl (9.6-12.3); PLATELET COUNT AUTOMATED 342 10*3/uL (130-400); RED BLOOD COUNT 4.45 10*6/uL (4.10-5.10); WHITE BLOOD COUNT 6.6 10*3/uL (4.8-10.8)
[2020-08-11 01:57] LABS: TOTAL CELLS COUNTED 100 #CELLS
[2020-08-11 01:58] LABS: BURR CELLS FEW; OVALOCYTES FEW; PLATELET SUFFICIENCY NORMAL (NORMAL)
[2020-08-11 02:05] LABS: ALBUMIN 3.6 gm/dl (3.1-4.5); ALKALINE PHOSPHATASE 88 U/L (45-117); BUN 22 mg/dl (7-24); CHLORIDE 112 mmol/L (98-107); CREATININE 0.88 mg/dL (0.55-1.02); POTASSIUM 3.8 mmol/L (3.5-5.1); SGOT/AST 15 IU/L (3-35); SGPT/ALT 14 U/L (12-78); SODIUM 140 mmol/L (136-145); TOTAL PROTEIN 7.7 gm/dL (6.4-8.2)
[2020-08-11 02:10] LABS: TROPONIN I < 0.015 ng/ml (<0.045)
[2020-08-11] MEDS ORDERED: FLAGYL500 MG PO (03:28)
== END 2020-08-11 03:45 | disposition home or self-care (01) ==
LOC: ED 00:39
PROVIDERS: Emergency Medicine
DX: R00.2 Palpitations (principal); Z91.018 Allergy to other foods; Z91.041 Radiographic dye allergy status; Z88.8 Allergy status to other drugs, medicaments and biological substances; Z79.899 Other long term (current) drug therapy; Z79.2 Long term (current) use of antibiotics; Z90.711 Acquired absence of uterus with remaining cervical stump

== ENCOUNTER 2020-09-03 23:38 | Emergency (ER) | payer MEDICARE, MEDICAID ==
[~2020-09-03] VITALS: Ht 167.6 cm; Wt 68.0 kg
[2020-09-04 01:36] VITALS: BP 116/80
[2020-09-04 02:34] LABS: BASO % 0.3 % (0.0-1.0); EOS # 0.2 10*3/uL (0.0-0.4); EOS % 2.4 % (1.0-4.0); HEMATOCRIT 39.1 % (37.0-47.0); LYMPH # 2.4 10*3/uL (1.3-4.4); LYMPH % 26.7 % (27.0-41.0); MEAN CELL VOLUME 90.3 fl (81.0-99.0); MEAN CORPUSCULAR HGB 29.1 pg (27.0-31.0); MEAN CORPUSCULAR HGB CONC 32.2 g/dl (33.0-37.0); MEAN PLATELET VOLUME 10.2 fl (9.6-12.3); MONO # 0.7 10*3/uL (0.1-1.0); MONO % 7.8 % (3.0-9.0); NEUT # 5.5 10*3/uL (2.3-7.9); NEUT % 61.9 % (47.0-73.0); PLATELET COUNT AUTOMATED 326 10*3/uL (130-400); RED BLOOD COUNT 4.33 10*6/uL (4.10-5.10); RED CELL DISTRI WIDTH 13.1 % (0-14.5); WHITE BLOOD COUNT 8.8 10*3/uL (4.8-10.8)
[2020-09-04 02:56] LABS: ALBUMIN 3.4 gm/dl (3.1-4.5); ALKALINE PHOSPHATASE 91 U/L (45-117); BUN 30 mg/dl (7-24); CHLORIDE 109 mmol/L (98-107); CREATININE 1.15 mg/dL (0.55-1.02); POTASSIUM 3.5 mmol/L (3.5-5.1); SGOT/AST 17 IU/L (3-35); SGPT/ALT 17 U/L (12-78); SODIUM 139 mmol/L (136-145); TOTAL PROTEIN 6.8 gm/dL (6.4-8.2)
[2020-09-04 04:11] LABS: BILIRUBIN Negative (Negative); BLOOD Negative (Negative); CLARITY Cloudy (Clear); COLOR Yellow (Yellow); GLUCOSE Negative (Negative); KETONE Trace (Negative); LEUKO ESTERASE 1+ (Negative); NITRITE Negative (Negative); SPECIFIC GRAVITY 1.025 (1.001-1.030)
[2020-09-04 04:30] LABS: BACTERIA 2+
[2020-09-04] MEDS ORDERED: CEPHALEXIN500 M1 PO (06:03)
== END 2020-09-04 06:41 | disposition home or self-care (01) ==
LOC: ED 23:38
PROVIDERS: Emergency Medicine
DX: N39.0 Urinary tract infection, site not specified (principal); Z88.8 Allergy status to other drugs, medicaments and biological substances; Z91.041 Radiographic dye allergy status; Z88.5 Allergy status to narcotic agent; Z79.899 Other long term (current) drug therapy; Z79.2 Long term (current) use of antibiotics; Z90.711 Acquired absence of uterus with remaining cervical stump

== ENCOUNTER → 2020-09-15 | Outpatient (CLI) | payer MEDICARE, MEDICAID | END | disposition home or self-care (01) | LOC: LAB 01:16 | PROVIDERS: ATTEND Nurse Practitioner Family | DX: N39.0 Urinary tract infection, site not specified (principal); R30.0 Dysuria ==

== ENCOUNTER 2020-09-25 16:41 | Emergency (ER) | payer MEDICARE, MEDICAID ==
[2020-09-25 16:57] VITALS: BP 122/111
[2020-09-25] MEDS ORDERED: ZITHROMAX250 MG PO (18:07)
== END 2020-09-25 18:11 | disposition home or self-care (01) ==
LOC: ED 16:41
DX: J32.9 Chronic sinusitis, unspecified (principal); Z88.8 Allergy status to other drugs, medicaments and biological substances; Z91.041 Radiographic dye allergy status; Z88.5 Allergy status to narcotic agent; Z79.2 Long term (current) use of antibiotics; Z79.899 Other long term (current) drug therapy; Z90.711 Acquired absence of uterus with remaining cervical stump

== ENCOUNTER 2020-10-11 21:56 | Emergency (ER) | payer MEDICARE, MEDICAID ==
[~2020-10-11] VITALS: Ht 160 cm; Wt 74.4 kg
[2020-10-11 22:09] VITALS: BP 143/81
[2020-10-11] MEDS ORDERED: LEVOFLOXACIN500 MG PO (22:22)
[2020-10-11] MEDS ORDERED: MEDROL DOSEPAK4 MG PO (22:22)
== END 2020-10-11 23:30 | disposition home or self-care (01) ==
LOC: ED 21:56
DX: J01.90 Acute sinusitis, unspecified (principal); Z79.899 Other long term (current) drug therapy; Z88.8 Allergy status to other drugs, medicaments and biological substances

== ENCOUNTER 2021-05-02 19:41 | Emergency (ER) | payer MEDICARE, MEDICAID ==
[~2021-05-02] VITALS: Ht 167.6 cm; Wt 74.4 kg
[2021-05-02 20:10] VITALS: BP 138/77
[2021-05-02 20:44] LABS: BILIRUBIN Negative (Negative); BLOOD Negative (Negative); CLARITY Clear (Clear); COLOR Yellow (Yellow); GLUCOSE Negative (Negative); KETONE Negative (Negative); LEUKO ESTERASE Negative (Negative); NITRITE Negative (Negative); PH 7.5 (4.5-8.0); UROBILINOGEN 0.2 E.U./dl (0.0-1.0)
[2021-05-02 21:13] LABS: BACTERIA TRACE
[2021-05-02 22:02] LABS: BASO % 0.3 % (0.0-1.0); EOS # 0.1 10*3/uL (0.0-0.4); HEMATOCRIT 36.6 % (37.0-47.0); LYMPH # 1.9 10*3/uL (1.3-4.4); LYMPH % 27.9 % (27.0-41.0); MEAN CELL VOLUME 88.6 fl (81.0-99.0); MEAN CORPUSCULAR HGB 28.1 pg (27.0-31.0); MEAN CORPUSCULAR HGB CONC 31.7 g/dl (33.0-37.0); MONO # 0.4 10*3/uL (0.1-1.0); MONO % 5.6 % (3.0-9.0); NEUT # 4.2 10*3/uL (2.3-7.9); NEUT % 63.7 % (47.0-73.0); PLATELET COUNT AUTOMATED 329 10*3/uL (130-400); RED BLOOD COUNT 4.13 10*6/uL (4.10-5.10); RED CELL DISTRI WIDTH 13.4 % (0-14.5); WHITE BLOOD COUNT 6.6 10*3/uL (4.8-10.8)
[2021-05-02 22:21] LABS: ALKALINE PHOSPHATASE 67 U/L (45-117); BUN 21 mg/dl (7-24); CHLORIDE 112 mmol/L (98-107); CREATININE 0.74 mg/dL (0.55-1.02); LIPASE 171 U/L (73-393); POTASSIUM 3.6 mmol/L (3.5-5.1); SGOT/AST 17 IU/L (3-35); SGPT/ALT 15 U/L (12-78); SODIUM 141 mmol/L (136-145); TOTAL PROTEIN 6.9 gm/dL (6.4-8.2)
== END 2021-05-03 00:25 | disposition home or self-care (01) ==
LOC: ED 19:41
PROVIDERS: Physician Assistant
DX: R10.32 Left lower quadrant pain (principal); Z88.8 Allergy status to other drugs, medicaments and biological substances; Z79.899 Other long term (current) drug therapy; Z90.710 Acquired absence of both cervix and uterus

== ENCOUNTER 2021-07-10 16:30 | Emergency (ER) | payer OTHER, MEDICAID ==
[~2021-07-10] VITALS: Ht 167.6 cm; Wt 74.8 kg
[2021-07-10 16:49] VITALS: BP 140/82
[2021-07-10] MEDS ORDERED: AUGMENTIN 875-875 MG PO (17:15)
[2021-07-10] MEDS ORDERED: FLONASE ALLERG9.9 ML NAS (17:15)
[2021-07-10] MEDS ORDERED: PREDNISONE20 M1 PO (17:15)
== END 2021-07-10 17:24 | disposition home or self-care (01) ==
LOC: ED 16:30
DX: J32.8 Other chronic sinusitis (principal); J45.909 Unspecified asthma, uncomplicated; Z88.8 Allergy status to other drugs, medicaments and biological substances; Z79.899 Other long term (current) drug therapy; Z90.710 Acquired absence of both cervix and uterus

== ENCOUNTER 2021-08-19 22:29 | Emergency (ER) | payer OTHER, MEDICAID ==
[~2021-08-19] VITALS: Ht 167.6 cm; Wt 74.8 kg
[~2021-08-19 22:29] MED LIST changes: +AUGMENTIN 875-875 MG PO; +PREDNISONE20 M1 PO
[2021-08-19 22:54] VITALS: BP 126/81
[2021-08-19 23:10] LABS: BILIRUBIN Negative (Negative); BLOOD Negative (Negative); CLARITY Clear (Clear); COLOR Yellow (Yellow); GLUCOSE Negative (Negative); KETONE Negative (Negative); LEUKO ESTERASE Negative (Negative); NITRITE Negative (Negative); SPECIFIC GRAVITY 1.015 (1.001-1.030); UROBILINOGEN 0.2 E.U./dl (0.0-1.0)
[2021-08-19 23:25] LABS: BACTERIA TRACE; RBC 0-2 rbc/hpf (0-2)
[2021-08-21] MEDS ORDERED: MACROBID100 M1 PO (13:45)
== END 2021-08-20 00:33 | disposition home or self-care (01) ==
LOC: ED 22:29
PROVIDERS: Nurse Practitioner Family
DX: N39.0 Urinary tract infection, site not specified (principal); K21.9 Gastro-esophageal reflux disease without esophagitis; E03.9 Hypothyroidism, unspecified; J45.909 Unspecified asthma, uncomplicated; Z90.710 Acquired absence of both cervix and uterus; Z98.890 Other specified postprocedural states

== ENCOUNTER 2021-11-03 19:33 | Emergency (ER) | payer OTHER, MEDICAID ==
[~2021-11-03] VITALS: Ht 167.6 cm; Wt 74.8 kg
[2021-11-03 19:59] VITALS: BP 169/99
[2021-11-03] MEDS ORDERED: PENICILLIN-VK500 M1 PO (20:07)
== END 2021-11-03 20:21 | disposition home or self-care (01) ==
LOC: ED 19:33
DX: J02.9 Acute pharyngitis, unspecified (principal); M26.609 Unspecified temporomandibular joint disorder, unspecified side; R50.9 Fever, unspecified; F17.200 Nicotine dependence, unspecified, uncomplicated; Z88.8 Allergy status to other drugs, medicaments and biological substances; Z91.041 Radiographic dye allergy status; Z88.6 Allergy status to analgesic agent; Z79.2 Long term (current) use of antibiotics; Z79.899 Other long term (current) drug therapy; Z90.710 Acquired absence of both cervix and uterus

== ENCOUNTER 2021-11-24 11:01 | Emergency (ER) | payer OTHER, MEDICAID ==
[~2021-11-24] VITALS: Ht 167.6 cm; Wt 77.1 kg
[~2021-11-24 11:01] MED LIST changes: +PENICILLIN-VK500 M1 PO
[2021-11-24 11:08] VITALS: BP 149/74
[2021-11-24] MEDS ORDERED: ZITHROMAX250 MG PO (11:47)
[2021-11-24] MEDS ORDERED: PREDNISONE20 M1 PO (11:47)
== END 2021-11-24 12:59 | disposition home or self-care (01) ==
LOC: ED 11:01
DX: J02.9 Acute pharyngitis, unspecified (principal); Z20.822 Contact with and (suspected) exposure to COVID-19; Z88.8 Allergy status to other drugs, medicaments and biological substances; Z79.899 Other long term (current) drug therapy; Z90.710 Acquired absence of both cervix and uterus

== ENCOUNTER 2021-12-14 14:14 | Emergency (ER) | payer OTHER, MEDICAID ==
[2021-12-14 14:30] VITALS: BP 143/88
[2021-12-14 16:22] LABS: BASO % 0.1 % (0.0-1.0); EOS % 0.1 % (1.0-4.0); HEMATOCRIT 37.4 % (37.0-47.0); LYMPH # 1.2 10*3/uL (1.3-4.4); MEAN CELL VOLUME 90.8 fl (81.0-99.0); MEAN CORPUSCULAR HGB 29.9 pg (27.0-31.0); MEAN CORPUSCULAR HGB CONC 32.9 g/dl (33.0-37.0); MEAN PLATELET VOLUME 10.2 fl (9.6-12.3); MONO # 0.6 10*3/uL (0.1-1.0); MONO % 6.1 % (3.0-9.0); NEUT # 8.7 10*3/uL (2.3-7.9); NEUT % 82.2 % (47.0-73.0); PLATELET COUNT AUTOMATED 300 10*3/uL (130-400); RED BLOOD COUNT 4.12 10*6/uL (4.10-5.10); RED CELL DISTRI WIDTH 13.2 % (0-14.5); WHITE BLOOD COUNT 10.5 10*3/uL (4.8-10.8)
[2021-12-14 16:37] LABS: BILIRUBIN Negative (Negative); BLOOD Negative (Negative); CLARITY Cloudy (Clear); COLOR Yellow (Yellow); GLUCOSE Negative (Negative); KETONE Trace (Negative); LEUKO ESTERASE Negative (Negative); NITRITE Negative (Negative); SPECIFIC GRAVITY >= 1.030 (1.001-1.030); UROBILINOGEN 0.2 E.U./dl (0.0-1.0)
[2021-12-14 16:47] LABS: ALKALINE PHOSPHATASE 84 U/L (45-117); BUN 25 mg/dl (7-24); CHLORIDE 115 mmol/L (98-107); POTASSIUM 3.7 mmol/L (3.5-5.1); SGOT/AST 23 IU/L (3-35); SGPT/ALT 25 U/L (12-78); SODIUM 141 mmol/L (136-145); TOTAL PROTEIN 7.6 gm/dL (6.4-8.2)
[2021-12-14 16:48] LABS: URINE AMPHETAMINES < 1000 (1000ng/ml); URINE BARBITURATES < 200 (200ng/ml); URINE BENZODIAZEPINES > 200 (200ng/ml); URINE CANNABINOIDS (THC) < 50 (50ng/ml); URINE COCAINE < 300 (300ng/ml); URINE METHADONE < 300 (300ng/ml); URINE OPIATES < 300 (300ng/ml)
[2021-12-14 16:49] LABS: URINE PHENCYCLIDINE < 25 (25ng/ml)
[2021-12-14 16:54] LABS: BACTERIA 1+; RBC 0-2 rbc/hpf (0-2)
[2021-12-14 16:57] LABS: ACETAMINOPHEN (TYLENOL) < 5.0 ug/ml (10-30); ETHYL ALCOHOL < 3.0 mg/dl (<3)
== END 2021-12-14 19:02 | disposition home or self-care (01) ==
LOC: ED 14:14
PROVIDERS: Internal Medicine
DX: F31.9 Bipolar disorder, unspecified (principal); Z88.8 Allergy status to other drugs, medicaments and biological substances; Z79.899 Other long term (current) drug therapy; Z90.710 Acquired absence of both cervix and uterus

== ENCOUNTER 2022-02-18 23:23 | Emergency (ER) | payer OTHER, MEDICAID ==
[~2022-02-18] VITALS: Ht 167.6 cm; Wt 77.1 kg
[2022-02-18 23:53] VITALS: BP 151/79
[2022-02-19 01:43] LABS: BUN 19 mg/dl (9-23); CHLORIDE 108 mmol/L (98-107); CREATININE 0.99 mg/dL (0.55-1.02); POTASSIUM 4.2 mmol/L (3.4-5.1); SODIUM 138 mmol/L (136-145)
[2022-02-19] MEDS ORDERED: PREDNISONE20 M1 PO (02:18)
[2022-02-19] MEDS ORDERED: AMOX-CLAV 875-1 EACH PO (02:18)
== END 2022-02-19 02:30 | disposition home or self-care (01) ==
LOC: ED 23:23
PROVIDERS: Emergency Medicine
DX: J45.909 Unspecified asthma, uncomplicated (principal); K21.9 Gastro-esophageal reflux disease without esophagitis; M26.629 Arthralgia of temporomandibular joint, unspecified side; Z88.8 Allergy status to other drugs, medicaments and biological substances; Z79.899 Other long term (current) drug therapy; Z90.710 Acquired absence of both cervix and uterus

== ENCOUNTER 2022-08-30 20:01 | Emergency (ER) | payer OTHER, MEDICAID ==
[~2022-08-30 20:01] MED LIST changes: +AMOX-CLAV 875-1 EACH PO
[2022-08-30 20:40] VITALS: BP 122/71
[2022-08-30] MEDS ORDERED: KETOROLAC10 MG PO (21:52)
== END 2022-08-30 22:14 | disposition home or self-care (01) ==
LOC: ED 20:01
DX: Z88.5 Allergy status to narcotic agent (principal); Z88.8 Allergy status to other drugs, medicaments and biological substances; Z91.041 Radiographic dye allergy status; Z79.899 Other long term (current) drug therapy; Z79.2 Long term (current) use of antibiotics; Z90.711 Acquired absence of uterus with remaining cervical stump

== ENCOUNTER 2022-09-19 16:04 | Emergency (ER) | payer OTHER, MEDICAID ==
[~2022-09-19] VITALS: Ht 167.6 cm; Wt 81.6 kg
[2022-09-19 16:15] VITALS: BP 128/87
[2022-09-19] MEDS ORDERED: NAPROSYN500 MG PO (20:59)
== END 2022-09-19 21:03 | disposition home or self-care (01) ==
LOC: ED 16:04
DX: M17.11 Unilateral primary osteoarthritis, right knee (principal); M25.461 Effusion, right knee; J45.909 Unspecified asthma, uncomplicated; K21.9 Gastro-esophageal reflux disease without esophagitis; F41.9 Anxiety disorder, unspecified; F31.9 Bipolar disorder, unspecified; Z91.041 Radiographic dye allergy status; Z88.8 Allergy status to other drugs, medicaments and biological substances; Z90.710 Acquired absence of both cervix and uterus; Z98.890 Other specified postprocedural states

== ENCOUNTER 2023-01-02 00:51 | Emergency (ER) | payer OTHER, MEDICAID ==
[~2023-01-02] VITALS: Ht 162.5 cm; Wt 77.1 kg
[2023-01-02 01:32] VITALS: BP 130/78
[2023-01-02 01:51] LABS: BASO % 0.4 % (0.0-1.0); EOS # 0.2 10*3/uL (0.0-0.4); EOS % 2.3 % (1.0-4.0); HEMATOCRIT 42.5 % (37.0-47.0); LYMPH # 1.8 10*3/uL (1.3-4.4); LYMPH % 23.8 % (27.0-41.0); MEAN CELL VOLUME 88.9 fl (81.0-99.0); MEAN CORPUSCULAR HGB 29.3 pg (27.0-31.0); MEAN CORPUSCULAR HGB CONC 32.9 g/dl (33.0-37.0); MONO # 0.4 10*3/uL (0.1-1.0); MONO % 5.8 % (3.0-9.0); NEUT % 67.3 % (47.0-73.0); PLATELET COUNT AUTOMATED 297 10*3/uL (130-400); RED BLOOD COUNT 4.78 10*6/uL (4.10-5.10); RED CELL DISTRI WIDTH 12.7 % (0-14.5); WHITE BLOOD COUNT 7.5 10*3/uL (4.8-10.8)
[2023-01-02 02:06] LABS: BILIRUBIN Negative (Negative); BLOOD Negative (Negative); CLARITY Clear (Clear); COLOR Yellow (Yellow); GLUCOSE Negative (Negative); KETONE Negative (Negative); LEUKO ESTERASE Negative (Negative); NITRITE Negative (Negative); UROBILINOGEN 0.2 E.U./dl (0.0-1.0)
[2023-01-02 02:15] LABS: ALKALINE PHOSPHATASE 75 U/L (46-116); BUN 22 mg/dl (9-23); CHLORIDE 109 mmol/L (98-107); POTASSIUM 4.1 mmol/L (3.4-5.1); SGPT/ALT 21 U/L (5-49); TOTAL PROTEIN 7.1 gm/dL (6.0-8.0)
[2023-01-02 02:28] LABS: EPITHELIAL CELLS 21-30
== END 2023-01-02 03:45 | disposition home or self-care (01) ==
LOC: ED 00:51
PROVIDERS: Internal Medicine
DX: Z20.2 Contact with and (suspected) exposure to infections with a predominantly sexual mode of transmission (principal); J45.909 Unspecified asthma, uncomplicated; K21.9 Gastro-esophageal reflux disease without esophagitis; F41.9 Anxiety disorder, unspecified; F31.9 Bipolar disorder, unspecified; Z91.041 Radiographic dye allergy status; Z91.018 Allergy to other foods; Z88.8 Allergy status to other drugs, medicaments and biological substances; Z90.710 Acquired absence of both cervix and uterus; Z98.890 Other specified postprocedural states

== ENCOUNTER → 2023-01-15 | Outpatient (CLI) | payer OTHER, MEDICAID ==
[~2023-01-15] MED LIST changes: +DECADRON4 MG PO
== END | disposition home or self-care (01) ==
LOC: COVID19 02:54
PROVIDERS: ATTEND Internal Medicine
DX: U07.1 COVID-19 (principal)

== ENCOUNTER 2023-01-16 10:44 | Emergency (ER) | payer OTHER, MEDICAID ==
[~2023-01-16] VITALS: Wt 74.8 kg
[~2023-01-16 10:44] MED LIST changes: -DECADRON4 MG PO
[2023-01-16 10:57] VITALS: BP 153/78
[2023-01-16 12:07] LABS: BASO % 0.2 % (0.0-1.0); EOS # 0.2 10*3/uL (0.0-0.4); EOS % 3.5 % (1.0-4.0); HEMATOCRIT 36.4 % (37.0-47.0); LYMPH # 0.9 10*3/uL (1.3-4.4); LYMPH % 19.2 % (27.0-41.0); MEAN CELL VOLUME 89.7 fl (81.0-99.0); MEAN CORPUSCULAR HGB 28.1 pg (27.0-31.0); MEAN CORPUSCULAR HGB CONC 31.3 g/dl (33.0-37.0); MEAN PLATELET VOLUME 9.7 fl (9.6-12.3); MONO # 0.6 10*3/uL (0.1-1.0); NEUT # 3.1 10*3/uL (2.3-7.9); NEUT % 63.7 % (47.0-73.0); PLATELET COUNT AUTOMATED 271 10*3/uL (130-400); RED BLOOD COUNT 4.06 10*6/uL (4.10-5.10); WHITE BLOOD COUNT 4.8 10*3/uL (4.8-10.8)
[2023-01-16 12:28] LABS: ALKALINE PHOSPHATASE 60 U/L (46-116); BUN 17 mg/dl (9-23); CHLORIDE 112 mmol/L (98-107); POTASSIUM 4.2 mmol/L (3.4-5.1); SGPT/ALT 11 U/L (5-49); TOTAL PROTEIN 6.4 gm/dL (6.0-8.0)
[2023-01-16] MEDS ORDERED: FLONASE ALLERG9.9 ML NAS (12:50)
[2023-01-16] MEDS ORDERED: DECADRON4 MG PO (12:50)
== END 2023-01-16 13:29 | disposition home or self-care (01) ==
LOC: ED 10:44
PROVIDERS: Nurse Practitioner
DX: U07.1 COVID-19 (principal); J45.909 Unspecified asthma, uncomplicated; K21.9 Gastro-esophageal reflux disease without esophagitis; F41.9 Anxiety disorder, unspecified; F31.9 Bipolar disorder, unspecified; Z88.5 Allergy status to narcotic agent; Z91.018 Allergy to other foods; Z88.8 Allergy status to other drugs, medicaments and biological substances; Z91.041 Radiographic dye allergy status; Z90.710 Acquired absence of both cervix and uterus; Z98.890 Other specified postprocedural states

== ENCOUNTER → 2023-01-29 | Outpatient (CLI) | payer OTHER, MEDICAID ==
[~2023-01-29] MED LIST changes: +DECADRON4 MG PO
== END | disposition home or self-care (01) ==
LOC: COVID19 01:00
PROVIDERS: ATTEND Internal Medicine
DX: Z11.52 Encounter for screening for COVID-19 (principal)

== ENCOUNTER 2023-02-27 19:40 | Emergency (ER) | payer OTHER, MEDICAID ==
[~2023-02-27] VITALS: Ht 167.6 cm; Wt 79.4 kg
[2023-02-27 19:40] VITALS: BP 136/92
[2023-02-27] MEDS ORDERED: METHOCARBAMOL750 M1 PO (22:22)
[2023-02-27] MEDS ORDERED: NAPROXEN250 MG PO (22:22)
== END 2023-02-27 23:30 | disposition home or self-care (01) ==
LOC: ED 19:40
DX: S39.012A Strain of muscle, fascia and tendon of lower back, initial encounter (principal); M25.552 Pain in left hip; M54.42 Lumbago with sciatica, left side; J45.909 Unspecified asthma, uncomplicated; K21.9 Gastro-esophageal reflux disease without esophagitis; F41.9 Anxiety disorder, unspecified; F31.9 Bipolar disorder, unspecified; Z91.018 Allergy to other foods; Z88.8 Allergy status to other drugs, medicaments and biological substances; Z91.041 Radiographic dye allergy status; Z90.710 Acquired absence of both cervix and uterus; Z98.890 Other specified postprocedural states; X58.XXXA Exposure to other specified factors, initial encounter; Y93.89 Activity, other specified; Y92.129 Unspecified place in nursing home as the place of occurrence of the external cause; Y99.8 Other external cause status

== ENCOUNTER → 2023-04-30 | Outpatient (CLI) | payer OTHER, MEDICAID ==
[~2023-04-30] MED LIST changes: +METHOCARBAMOL750 M1 PO; +NAPROXEN250 MG PO
== END | disposition home or self-care (01) ==
LOC: LAB 04:15 → COVID19 13:30 → LAB 13:30
PROVIDERS: ATTEND Internal Medicine
DX: Z20.822 Contact with and (suspected) exposure to COVID-19 (principal)

== ENCOUNTER → 2023-06-02 | Outpatient (CLI) | payer OTHER, MEDICAID ==
[~2023-06-02] MED LIST changes: +FLUCONAZOLE200 MG PO
== END | disposition home or self-care (01) ==
LOC: RAD 17:15
PROVIDERS: ATTEND Nurse Practitioner
DX: M17.0 Bilateral primary osteoarthritis of knee (principal); M47.816 Spondylosis without myelopathy or radiculopathy, lumbar region; M43.17 Spondylolisthesis, lumbosacral region

== ENCOUNTER 2023-06-05 17:16 | Emergency (ER) | payer OTHER, MEDICAID ==
[~2023-06-05] VITALS: Ht 167.6 cm; Wt 81.6 kg
[~2023-06-05 17:16] MED LIST changes: -FLUCONAZOLE200 MG PO
[2023-06-05 17:36] VITALS: BP 154/68
[2023-06-05] MEDS ORDERED: Amoxicillin/Clavulanate Pota 875 MG TAB PO ONE (20:10)
[2023-06-05] MEDS ORDERED: FLUCONAZOLE200 MG PO (20:13)
[2023-06-05] MEDS ORDERED: MEDROL DOSEPAK4 MG PO (20:13)
[2023-06-05] MEDS ORDERED: AMOX-CLAV 875-1 EACH PO (20:13)
== END 2023-06-05 20:23 | disposition home or self-care (01) ==
LOC: ED 17:16
DX: J06.9 Acute upper respiratory infection, unspecified (principal); F31.9 Bipolar disorder, unspecified; J45.909 Unspecified asthma, uncomplicated; K21.9 Gastro-esophageal reflux disease without esophagitis; F41.9 Anxiety disorder, unspecified; Z91.018 Allergy to other foods; Z91.041 Radiographic dye allergy status; Z88.8 Allergy status to other drugs, medicaments and biological substances; Z90.710 Acquired absence of both cervix and uterus; Z98.890 Other specified postprocedural states

== ENCOUNTER 2023-06-29 20:52 | Emergency (ER) | payer OTHER, MEDICAID ==
[~2023-06-29] VITALS: Ht 167.6 cm; Wt 77.1 kg
[~2023-06-29 20:52] MED LIST changes: +FLUCONAZOLE200 MG PO
[2023-06-29 21:07] VITALS: BP 134/84
[2023-06-29] MEDS ORDERED: CEPHALEXIN500 M1 PO (21:28)
[2023-06-29] MEDS ORDERED: CEPHALEXIN 500 MG CAP PO ONE (21:30)
[2023-06-29] MEDS ORDERED: methylPREDNISolone sod succ 125 MG VIAL IM ONE (21:30)
== END 2023-06-29 21:45 | disposition home or self-care (01) ==
LOC: ED 20:52
DX: S80.861A Insect bite (nonvenomous), right lower leg, initial encounter (principal); F31.9 Bipolar disorder, unspecified; M19.90 Unspecified osteoarthritis, unspecified site; Z88.8 Allergy status to other drugs, medicaments and biological substances; F41.9 Anxiety disorder, unspecified; K21.9 Gastro-esophageal reflux disease without esophagitis; E03.9 Hypothyroidism, unspecified; J45.909 Unspecified asthma, uncomplicated; Z91.041 Radiographic dye allergy status; Z90.710 Acquired absence of both cervix and uterus; Z98.890 Other specified postprocedural states; W57.XXXA Bitten or stung by nonvenomous insect and other nonvenomous arthropods, initial encounter; Y93.89 Activity, other specified; Y92.89 Other specified places as the place of occurrence of the external cause; Y99.8 Other external cause status

== ENCOUNTER 2023-12-16 21:33 | Emergency (ER) | payer OTHER, MEDICAID ==
[~2023-12-16] VITALS: Ht 167.6 cm; Wt 77.1 kg
[2023-12-16] MEDS ORDERED: Ketorolac Tromethamine 60 MG/2 ML VIAL IM ONE (21:55)
[2023-12-16 22:22] LABS: BASO # 0.1 10*3/uL (0.0-0.1); BASO % 0.3 % (0.0-1.0); EOS # 0.2 10*3/uL (0.0-0.4); EOS % 0.8 % (1.0-4.0); LYMPH # 1.7 10*3/uL (1.3-4.4); LYMPH % 9.2 % (27.0-41.0); MEAN CELL VOLUME 89.5 fl (81.0-99.0); MEAN CORPUSCULAR HGB 28.2 pg (27.0-31.0); MEAN CORPUSCULAR HGB CONC 31.5 g/dl (33.0-37.0); MONO % 5.1 % (3.0-9.0); NEUT # 15.8 10*3/uL (2.3-7.9); NEUT % 83.5 % (47.0-73.0); PLATELET COUNT AUTOMATED 318 10*3/uL (130-400); RED BLOOD COUNT 4.47 10*6/uL (4.10-5.10); RED CELL DISTRI WIDTH 13.4 % (0-14.5); WHITE BLOOD COUNT 18.9 10*3/uL (4.8-10.8)
[2023-12-16 22:42] LABS: BUN 13 mg/dl (9-23); CHLORIDE 108 mmol/L (98-107)
[2023-12-17 00:02] LABS: BILIRUBIN Negative (Negative); BLOOD Negative (Negative); CLARITY Clear (Clear); COLOR Yellow (Yellow); GLUCOSE Negative (Negative); KETONE Negative (Negative); LEUKO ESTERASE Negative (Negative); NITRITE Negative (Negative); SPECIFIC GRAVITY 1.015 (1.001-1.030); UROBILINOGEN 0.2 E.U./dl (0.0-1.0)
[2023-12-17 00:26] LABS: EPITHELIAL CELLS 21-30; WBC 0-2 wbc/hpf (0-5)
[2023-12-17] MEDS ORDERED: METHOCARBAMOL500 M1 PO (01:08)
== END 2023-12-17 01:45 | disposition home or self-care (01) ==
LOC: ED 21:33
PROVIDERS: Internal Medicine
DX: M54.50 Low back pain, unspecified (principal); R11.2 Nausea with vomiting, unspecified; D72.829 Elevated white blood cell count, unspecified; J45.909 Unspecified asthma, uncomplicated; K21.9 Gastro-esophageal reflux disease without esophagitis; F41.9 Anxiety disorder, unspecified; F31.9 Bipolar disorder, unspecified; Z88.8 Allergy status to other drugs, medicaments and biological substances; Z91.041 Radiographic dye allergy status; Z90.710 Acquired absence of both cervix and uterus; Z98.890 Other specified postprocedural states

== ENCOUNTER 2024-01-23 14:37 | Emergency (ER) | payer OTHER, MEDICAID ==
[~2024-01-23] VITALS: Ht 167.6 cm; Wt 81.6 kg
[~2024-01-23 14:37] MED LIST changes: +METHOCARBAMOL500 M1 PO
[2024-01-23 14:47] VITALS: BP 119/69
[2024-01-23] MEDS ORDERED: FLUCONAZOLE 100 MG TAB PO ONE (15:15)
[2024-01-23 15:48] LABS: BASO % 0.3 % (0.0-1.0); EOS # 0.1 10*3/uL (0.0-0.4); EOS % 1.4 % (1.0-4.0); HEMATOCRIT 38.5 % (37.0-47.0); MEAN CELL VOLUME 89.3 fl (81.0-99.0); MEAN CORPUSCULAR HGB 27.8 pg (27.0-31.0); MEAN CORPUSCULAR HGB CONC 31.2 g/dl (33.0-37.0); MEAN PLATELET VOLUME 9.6 fl (9.6-12.3); MONO # 0.9 10*3/uL (0.1-1.0); MONO % 9.4 % (3.0-9.0); NEUT # 6.7 10*3/uL (2.3-7.9); NEUT % 73.6 % (47.0-73.0); PLATELET COUNT AUTOMATED 288 10*3/uL (130-400); RED BLOOD COUNT 4.31 10*6/uL (4.10-5.10); RED CELL DISTRI WIDTH 13.9 % (0-14.5); WHITE BLOOD COUNT 9.1 10*3/uL (4.8-10.8)
[2024-01-23 16:07] LABS: BILIRUBIN Negative (Negative); BLOOD Negative (Negative); CLARITY Clear (Clear); COLOR Yellow (Yellow); GLUCOSE Negative (Negative); KETONE Negative (Negative); LEUKO ESTERASE Negative (Negative); NITRITE Negative (Negative); PH 6.5 (4.5-8.0); SPECIFIC GRAVITY 1.015 (1.001-1.030); UROBILINOGEN 0.2 E.U./dl (0.0-1.0)
[2024-01-23 16:10] LABS: BUN 16 mg/dl (9-23); CHLORIDE 112 mmol/L (98-107)
[2024-01-23 16:16] LABS: BACTERIA 1+; EPITHELIAL CELLS 16-20
[2024-01-23] MEDS ORDERED: CIPRO500 MG PO (16:28)
[2024-01-23] MEDS ORDERED: FLUCONAZOLE200 MG PO (16:28)
[2024-01-23] MEDS ORDERED: TERCONAZOLE45 GM V (16:28)
== END 2024-01-23 16:54 | disposition home or self-care (01) ==
LOC: ED 14:37
PROVIDERS: Nurse Practitioner
DX: N39.0 Urinary tract infection, site not specified (principal); B37.9 Candidiasis, unspecified; J45.909 Unspecified asthma, uncomplicated; K21.9 Gastro-esophageal reflux disease without esophagitis; F41.9 Anxiety disorder, unspecified; F31.9 Bipolar disorder, unspecified; Z88.8 Allergy status to other drugs, medicaments and biological substances; Z91.041 Radiographic dye allergy status; Z90.710 Acquired absence of both cervix and uterus; Z98.890 Other specified postprocedural states

== ENCOUNTER 2024-02-24 14:20 | Emergency (ER) | payer OTHER, MEDICAID ==
[~2024-02-24] VITALS: Ht 167.6 cm; Wt 83.5 kg
[~2024-02-24 14:20] MED LIST changes: +'XANAX1 MG PO; +FOSFOMYCIN TROME3 GM PO; +LITHIUM CARBON450 M1 PO; +MECLIZINE HCL25 M2 PO; +NORETHINDRONE AC5 MG PO; +REBIF44 MCG/0.5 SC; -SYNTHROID0.137 MG PO; +Synthroid,Lev150 MCG PO; +TERCONAZOLE45 GM V; +TERCONAZOLE45 GM VG; +ZOLPIDEM10 MG PO
[2024-02-24 14:44] VITALS: BP 155/77
[2024-02-24] MEDS ORDERED: ACETAMINOPHEN 325 MG TAB PO ONE (15:05)
[2024-02-24] MEDS ORDERED: SODIUM CHLORIDE 0.9% 500 ML IV ONE (15:05)
[2024-02-24 15:58] LABS: BASO % 0.4 % (0.0-1.0); EOS # 0.2 10*3/uL (0.0-0.4); EOS % 1.9 % (1.0-4.0); HEMATOCRIT 41.1 % (37.0-47.0); MEAN CELL VOLUME 89.3 fl (81.0-99.0); MEAN CORPUSCULAR HGB CONC 31.4 g/dl (33.0-37.0); MEAN PLATELET VOLUME 9.8 fl (9.6-12.3); MONO # 0.8 10*3/uL (0.1-1.0); MONO % 7.4 % (3.0-9.0); NEUT # 7.9 10*3/uL (2.3-7.9); NEUT % 70.3 % (47.0-73.0); PLATELET COUNT AUTOMATED 330 10*3/uL (130-400); RED CELL DISTRI WIDTH 14.3 % (0-14.5); WHITE BLOOD COUNT 11.3 10*3/uL (4.8-10.8)
[2024-02-24 16:24] LABS: ALKALINE PHOSPHATASE 123 U/L (46-116); BUN 11 mg/dl (9-23); CHLORIDE 108 mmol/L (98-107); CPK 32 U/L (34-171); POTASSIUM 4.1 mmol/L (3.4-5.1); SGPT/ALT 43 U/L (5-49); TOTAL PROTEIN 7.6 gm/dL (6.0-8.0)
[2024-02-24 17:21] LABS: BILIRUBIN Negative (Negative); BLOOD Negative (Negative); CLARITY Cloudy (Clear); COLOR Yellow (Yellow); GLUCOSE Negative (Negative); KETONE Negative (Negative); LEUKO ESTERASE Negative (Negative); NITRITE Negative (Negative); SPECIFIC GRAVITY <= 1.005 (1.001-1.030); UROBILINOGEN 0.2 E.U./dl (0.0-1.0)
[2024-02-24 17:38] LABS: BACTERIA 1+; EPITHELIAL CELLS 31-40; WBC 0-2 wbc/hpf (0-5)
[2024-02-24] MEDS ORDERED: METROGEL60 GM V (17:56)
[2024-02-24] MEDS ORDERED: BACITRACIN28.4 GM T (17:56)
== END 2024-02-24 18:06 | disposition home or self-care (01) ==
LOC: ED 14:20
PROVIDERS: Emergency Medicine
DX: T81.49XA Infection following a procedure, other surgical site, initial encounter (principal); Z20.822 Contact with and (suspected) exposure to COVID-19; F31.9 Bipolar disorder, unspecified; Z88.8 Allergy status to other drugs, medicaments and biological substances; Z91.041 Radiographic dye allergy status; Z79.899 Other long term (current) drug therapy; Z90.711 Acquired absence of uterus with remaining cervical stump; Z87.891 Personal history of nicotine dependence; Y83.8 Other surgical procedures as the cause of abnormal reaction of the patient, or of later complication, without mention of misadventure at the time of the procedure; Y92.89 Other specified places as the place of occurrence of the external cause

== ENCOUNTER 2024-04-22 18:57 | Emergency (ER) | payer OTHER, MEDICAID ==
[~2024-04-22] VITALS: Ht 167.6 cm; Wt 79.4 kg
[~2024-04-22 18:57] MED LIST changes: +BACITRACIN28.4 GM T; +METROGEL60 GM V
[2024-04-22 19:37] VITALS: BP 132/90
[2024-04-22 21:13] LABS: BILIRUBIN Negative (Negative); BLOOD Negative (Negative); CLARITY Clear (Clear); COLOR Yellow (Yellow); GLUCOSE Negative (Negative); KETONE Negative (Negative); LEUKO ESTERASE Negative (Negative); NITRITE Negative (Negative); PH 6.5 (4.5-8.0); UROBILINOGEN 0.2 E.U./dl (0.0-1.0)
[2024-04-22 21:39] LABS: WBC 0-2 wbc/hpf (0-5)
[2024-04-22] MEDS ORDERED: Nitrofurantoin Monohydrate/N 100 MG CAP PO ONE (22:05)
[2024-04-22] MEDS ORDERED: NITROFURANTOIN50 M2 PO (22:11)
== END 2024-04-22 22:52 | disposition home or self-care (01) ==
LOC: ED 18:57
PROVIDERS: Internal Medicine
DX: R10.2 Pelvic and perineal pain (principal); R10.32 Left lower quadrant pain; J45.909 Unspecified asthma, uncomplicated; K21.9 Gastro-esophageal reflux disease without esophagitis; F41.9 Anxiety disorder, unspecified; Z91.041 Radiographic dye allergy status; Z88.8 Allergy status to other drugs, medicaments and biological substances; Z90.710 Acquired absence of both cervix and uterus; Z98.890 Other specified postprocedural states; Z87.891 Personal history of nicotine dependence

== ENCOUNTER 2024-06-02 02:26 | Emergency (ER) | payer OTHER, MEDICAID ==
[~2024-06-02 02:26] MED LIST changes: +NITROFURANTOIN50 M2 PO
[2024-06-02 02:52] VITALS: BP 136/86
[2024-06-02 03:03] LABS: BILIRUBIN Negative (Negative); BLOOD Negative (Negative); CLARITY Clear (Clear); COLOR Yellow (Yellow); GLUCOSE Negative (Negative); KETONE Negative (Negative); LEUKO ESTERASE 2+ (Negative); NITRITE Negative (Negative); UROBILINOGEN 0.2 E.U./dl (0.0-1.0)
[2024-06-02 03:23] LABS: EPITHELIAL CELLS 16-20
[2024-06-02 03:24] LABS: WBC 41-50 wbc/hpf (0-5)
[2024-06-02] MEDS ORDERED: CIPRO500 MG PO (03:50)
[2024-06-02] MEDS ORDERED: Ciprofloxacin Hydrochloride 500 MG TAB PO ONE (03:55)
== END 2024-06-02 04:03 | disposition home or self-care (01) ==
LOC: ED
PROVIDERS: Emergency Medicine
DX: N39.0 Urinary tract infection, site not specified (principal); J45.909 Unspecified asthma, uncomplicated; K21.9 Gastro-esophageal reflux disease without esophagitis; F31.9 Bipolar disorder, unspecified; F41.9 Anxiety disorder, unspecified; Z79.899 Other long term (current) drug therapy; Z88.5 Allergy status to narcotic agent; Z88.8 Allergy status to other drugs, medicaments and biological substances; Z91.041 Radiographic dye allergy status; Z90.710 Acquired absence of both cervix and uterus; Z90.722 Acquired absence of ovaries, bilateral